=== PATIENT | female | born 1950 | race Caucasian/White ===

== ENCOUNTER → 2017-03-09 | Outpatient (CLI) | payer BC ==
[~2017-03-09] MED LIST: ASPI81TA28 PO; BIMA0.038 OPB; CHOL2000 PO; CLX20 PO; DORZ1SOL OPB; FLV400 PO; GLUC500C67 PO; MAGN1CAP2 PO; OMEG10007 PO; OXYC-57 PO; POLY1SOL6 OP; VTME100 PO
--- NOTE | 2017-03-09 08:57 | DIAGNOSTIC IMAGING REPORT ---
CT SCAN OF THE PARANASAL SINUSES CLINICAL HISTORY: Chronic sinusitis. COMPARISON STUDY: No priors. TECHNIQUE: High-resolution CT scan of the paranasal sinuses is performed. Images are reviewed in the axial, sagittal, and coronal planes. IV contrast was not administered for this examination. CT DOSE: 594.64 mGy.cm FINDINGS: Postoperative findings: There are postoperative changes from bilateral maxillary antrectomy with antrostomy formation. There has been ethmoid sinus resection. Maxillary antra: Trace mucosal thickening is seen bilaterally. Ethmoid cavities: There is mild mucosal thickening seen bilaterally. Sphenoid sinuses: Trace mucosal thickening is seen bilaterally. Frontal sinuses: Trace mucosal thickening seen bilaterally. Ostiomeatal complexes: The maxillary antrostomies are widely patent bilaterally. Frontoethmoidal and sphenoethmoidal recesses: Patent bilaterally. Carotid arteries: The carotid arteries are protuberant but covered and without septal attachments. Ethmoid roofs: The ethmoid roofs are symmetric. Nasal turbinates: Normal in appearance. Nasal septum: There is mild rightward deviation of the bony nasal septum. Optic nerves: Covered. Orbits: The bony orbits are intact. Orbital contents are normal in appearance. Calvarium: The skeletal structures are osteopenic. The calvarium appears intact as imaged. Mastoid air cells: Well pneumatized. Brain parenchyma: Partially visualized brain parenchyma is within normal limits. IMPRESSION: Postoperative change and mild paranasal sinus disease as detailed above. Electronically signed by: Silvio Petit M.D. 03/09/2017 8:55 AM Dictated Date/Time: 03/09/2017 8:52 AM
== END | disposition home or self-care (01) ==
LOC: C.CTS 08:18
PROVIDERS: ATTEND Otolaryngology
DX: J32.9 Chronic sinusitis, unspecified (principal)

== ENCOUNTER 2017-03-24 05:10 | Day surgery (SDC) | payer BC ==
--- NOTE | 2017-03-17 09:05 | PAT Medication Instructions ---
Service Date Mar 17, 2017. Current Home Medication List Aspirin (Aspirin Ec), 81 MG PO QAM Bimatoprost Oph (Lumigan 0.03% Oph), 1 DROP OPB HS Cholecalciferol (Vitamin D3), 1 CAP PO QAM Citalopram (Citalopram Hydrobromide), 20 MG PO BID Dorzolamide Hcl Oph (Trusopt Oph), 1 DROP OPB BID Fish Oil ([place]-3), 2 CAP PO QPM Folic Acid (Folvite *), 800 MCG PO QAM Glucosamine-Chondroitin (Cosamin Ds), 2 CAP PO NOON Magnesium Oxide (Mg Supplement (Magnesium), 800 MG PO QAM Polyethylene Glycol-Propylene (Systane Ultra), 1 DROPS OP QID PRN for EYE Tocopheryl Acet,Dl-Alpha (Vitamin E), 1 TAB PO QPM Medication Instructions For Your Scheduled Surgery - Check with surgeon for instructions (on hold per patient): Aspirin (Aspirin Ec), 81 MG PO QAM - Hold the following medications starting 03/17/17: Tocopheryl Acet,Dl-Alpha (Vitamin E), 1 TAB PO QPM Glucosamine-Chondroitin (Cosamin Ds), 2 CAP PO NOON Fish Oil ([place]-3), 2 CAP PO QPM - Hold the following medications the morning of surgery: Magnesium Oxide (Mg Supplement (Magnesium), 800 MG PO QAM Folic Acid (Folvite *), 800 MCG PO QAM Cholecalciferol (Vitamin D3), 1 CAP PO QAM - Take the following medications the morning of surgery with a sip of water: Polyethylene Glycol-Propylene (Systane Ultra), 1 DROPS OP QID PRN for EYE Dorzolamide Hcl Oph (Trusopt Oph), 1 DROP OPB BID Citalopram (Citalopram Hydrobromide), 20 MG PO BID - Take the following medications as scheduled the night before surgery: Bimatoprost Oph (Lumigan 0.03% Oph), 1 DROP OPB HS Polyethylene Glycol-Propylene (Systane Ultra), 1 DROPS OP QID PRN for EYE Dorzolamide Hcl Oph (Trusopt Oph), 1 DROP OPB BID Citalopram (Citalopram Hydrobromide), 20 MG PO BID If you have any questions please call us at [phone] (Malinda Robles PA-C) or [phone] or [phone]
[2017-03-17 09:58] LABS: BASO % 0.6 %; BASO ABS # 0.05 K/uL (0-0.2); COMPLETE YES; HEMATOCRIT 42.8 % (37-47); IG% 0.1 %; LYMPH % 21.7 %; LYMPH ABS # 1.68 K/uL (1.2-3.4); MEAN CELL VOLUME 90.7 fL (80-100); MEAN CORPUSCULAR HEMOGLOBIN 30.1 pg (25-34); MEAN CORPUSCULAR HGB CONC 33.2 g/dl (32-36); MEAN PLATELET VOLUME 9.8 fL (7.4-10.4); MONO % 9.9 %; NEUT % 64.7 %; PLATELET COUNT 247 K/uL (130-400); RED BLOOD COUNT 4.72 M/uL (4.2-5.4); WHITE BLOOD COUNT 7.74 K/uL (4.8-10.8)
[2017-03-17 10:13] LABS: CALCIUM 9.3 mg/dl (8.5-10.1)
[2017-03-17 10:16] LABS: BUN/CREATININE RATIO 19.9 (10-20); CREATININE 0.77 mg/dl (0.60-1.20); POTASSIUM 4.3 mmol/L (3.5-5.1)
--- NOTE | 2017-03-23 17:20 | History and Physical ---
History & Physical Date Mar 23, 2017. Chief Complaint sinus infection History of Present Illness The patient is a 66 year old female with complaints of chronic sinusitis Additional History Hepatic Disease: No Endocrine Disorder: No Kidney Disease: No Hypertension: No Heart Disease: No Bleeding Tendencies: No Infectious Diseases: No Allergies Coded Allergies: Ibuprofen (Verified Allergy, Severe, LARGE HIVES WHEN ON FOR EXTENDED TIME , 03/17/17) Naproxen (Unverified Allergy, Severe, DYSPNEA, 03/20/17) Latex1 -Allergic Contact Dermititis (Verified Allergy, Mild, ITCHY, ) Molds and Smuts (Verified Allergy, Unknown, ITCHING AND SINUS PROBLEMS, ) Sulfa Antibiotics (Verified Allergy, Unknown, RASH, 03/17/17) Sulfa Drugs (Verified Allergy, Unknown, RASH, 03/17/17) Benzodiazepines (Unverified Adverse Reaction, Mild, GETS ADDICTED, 03/20/17 ) Choline Magnesium Trisalicylate (Unverified Adverse Reaction, Mild, EAR RINGING, 03/20/17) Home Medications Scheduled Aspirin (Aspirin Ec), 81 MG PO QAM Bimatoprost Oph (Lumigan 0.03% Oph), 1 DROP OPB HS Cholecalciferol (Vitamin D3), 1 CAP PO QAM Citalopram (Citalopram Hydrobromide), 20 MG PO BID Dorzolamide Hcl Oph (Trusopt Oph), 1 DROP OPB BID Fish Oil ([place]-3), 2 CAP PO QPM Folic Acid (Folvite *), 800 MCG PO QAM Glucosamine-Chondroitin (Cosamin Ds), 2 CAP PO NOON Magnesium Oxide (Mg Supplement (Magnesium), 800 MG PO QAM Tocopheryl Acet,Dl-Alpha (Vitamin E), 1 TAB PO QPM Scheduled PRN Polyethylene Glycol-Propylene (Systane Ultra), 1 DROPS OP QID PRN for EYE Physical Examination Skin: warm/dry, no rash Eyes: normal inspection, EOMI, sclerae normal ENT: normal ENT inspection, pharynx normal Head: normocephalic, atraumatic Neck: supple, no adenopathy, trachea midline Respiratory/Chest: lungs clear, normal breath sounds, no respiratory distress Cardiovascular: regular rate, rhythm, no edema, no murmur Abdomen / GI: normal bowel sounds, non tender Back: normal inspection Extremities: normal inspection, normal range of motion Neurologic/Psych: no motor/sensory deficits, alert, normal reflexes, oriented x 3 Diagnosis chronic sinusitis Plan of Treatment endoscopic sinus surgery
[~2017-03-24] VITALS: Ht 154.9 cm; Wt 73.1 kg
[~2017-03-24 05:10] MED LIST changes: -OXYC-57 PO
[2017-03-24 05:46] VITALS: BP 108/76; PULSE 62; TEMP 37; O2SAT 96; Ht 154.9 cm; Wt 73.1 kg
[2017-03-24] MEDS ORDERED: LACTATED RINGER'S 1000ML 1,000 ML IV SCH (06:00)
[2017-03-24] MEDS ORDERED: CEFAZOLIN 1000MG/55 ML D5W IV SCH (06:00)
[2017-03-24] MEDS ORDERED: DEXAMETHASONE SOD INJ 4 MG/ML VIAL ONE (06:37)
[2017-03-24] MEDS ORDERED: FENTANYL CITRATE INJ 50 MCG/1 ML 2 ML VIAL ONE (06:37)
[2017-03-24] MEDS ORDERED: NEOSTIGMINE METHYLSULFATE 5 MG/5 ML SYR ONE (06:37)
[2017-03-24] MEDS ORDERED: PROPOFOL IV EMULSION 10 MG/ML 20 ML VIAL IV ONE (06:37)
[2017-03-24] MEDS ORDERED: MIDAZOLAM HCL 1 MG/ML 2ML VIAL ONE (06:37)
[2017-03-24] MEDS ORDERED: ROCURONIUM BROMIDE 10 MG/ML 5 ML VIAL ONE (06:37)
[2017-03-24] MEDS ORDERED: GLYCOPYRROLATE INJ 0.2 MG/ML VIAL ONE (06:37)
[2017-03-24] MEDS ORDERED: LIDOCAINE HCL 2% 2 ML VIAL (20MG/ML) ONE (06:37)
[2017-03-24] MEDS ORDERED: ONDANSETRON INJ 2 MG/ML 2 ML VIAL ONE (06:37)
[2017-03-24] MEDS ORDERED: GELATIN SPONGE 12-7MM ONE (06:58)
[2017-03-24] MEDS ORDERED: MUPIROCIN 2% OINT 22 GM TUBE ONE (06:59)
[2017-03-24] MEDS ORDERED: EpINEphrine INJ 1MG/ML AMP 1 MG/ML AMP ONE (06:59)
[2017-03-24] MEDS ORDERED: LIDOCAINE 4% W/AFRIN NASAL SOLN 4ML ONE (06:59)
[2017-03-24] MEDS ORDERED: NURSING VERBAL MED ORDER ONE (07:00)
[2017-03-24] MEDS ORDERED: LIDO 2%/EPINEPHRINE 1:100000 20 ML VIAL INFIL SCH (07:00)
--- NOTE | 2017-03-24 07:01 | History & Physical Bridge Note ---
H&P Re-Evaluation Bridge Note: I have examined the patient, reviewed the History & Physical and in the interval since the performance of the History & Physical I have noted the following changes of clinical significance: No changes noted
[2017-03-24] MEDS ORDERED: EpHEDrine SULFATE 50MG/5ML SYR ONE (07:32)
[2017-03-24] MEDS ORDERED: HEMADERM ENT APPLICATOR KIT TOP ONE (07:33)
[2017-03-24] MEDS ORDERED: PROMETHAZINE HCL INJ 12.5 MG in SODIUM CHLORIDE 0.9% 50ML 50 ML IV PRN (07:45)
[2017-03-24] MEDS ORDERED: FENTANYL CITRATE INJ 50 MCG/1 ML 2 ML VIAL IV PRN (07:45)
[2017-03-24] MEDS ORDERED: ONDANSETRON INJ 2 MG/ML 2 ML VIAL IV PRN (07:45)
[2017-03-24] MEDS ORDERED: ATROPINE SULFATE 0.1 MG/ML 5ML SYR IV PRN (07:45)
[2017-03-24] MEDS ORDERED: LARYING-O-JET KIT (LTA) EXT ONE ×2 (07:47)
[2017-03-24] MEDS ORDERED: SODIUM CHLORIDE 0.9% 1000ML 1,000 ML IV SCH (08:47)
[2017-03-24] MEDS ORDERED: OXYC-57 PO (08:48)
--- NOTE | 2017-03-24 08:49 | Discharge Instructions ---
Discharge Instructions Date of Service Mar 24, 2017. Admission Reason for Admission: Chronic Sinusitis Discharge Discharge Diagnosis / Problem: same Discharge Goals Goal(s): Improve disease control Activity Recommendations Activity Limitations: per Instructions/Follow-up section . Instructions / Follow-Up Instructions / Follow-Up ACTIVITY RECOMMENDATIONS: * Being up and around is good, but no strenuous activity, heavy lifting or physical exertion for one week. * Keep your head elevated 30 degrees when lying down or sleeping. * Do not blow your nose for 48 hours, sniff back instead. * Avoid hot showers. OVER THE COUNTER MEDICATIONS: * You may use Tylenol * Avoid aspirin or aspirin containing products, e.g. as they may increase bleeding. SPECIAL CARE INSTRUCTIONS: * Expect to have bloody drainage from your nose and/or down your throat for one to three days. Change drip pad as needed. * Begin irrigating your nose with saline solution today, at least six to ten times per day and sniff back to help remove old clots or crust. * You may experience nasal and facial congestion, pain and pressure, this is normal. * Please call with any significant and/or progressive pain, redness, swelling around the eyes, visual changes, fever of 101.5 degrees F, active bleeding or any problems or concerns. * If active bleeding occurs, spray the nose three times at one minute intervals with Afrin spray and call or cell phone: . If unable to reach the doctor, go to the nearest Emergency Department. Special Diet: * Avoid extremely hot fluids. FOLLOW UP VISIT: Follow-up Visit with Dr. Felipe If not already scheduled, please call to schedule. Current Hospital Diet Patient's current hospital diet: Discharge Diet Recommended Diet: Regular Diet Procedures Procedures Performed: Endoscopic Sinus Surgery of Right and Left Total Ethmoidectomies, Right and Left Frontal and Right and Left Maxillary Sinusotomies with Computer Guidance Pending Studies Studies pending at discharge: no Medical Emergencies . Who to Call and When: Medical Emergencies: If at any time you feel your situation is an emergency, please call 911 immediately. . Non-Emergent Contact Non-Emergency issues call your: Primary Care Provider . "Provider Documentation" section prepared by Dolly Felipe. . VTE Core Measure Inpt VTE Proph given/why not?: SCD's [place] Drug Monitoring Program Search Results: no issues identified
[2017-03-24] MEDS ORDERED: OXYCODONE/ACETAMINOPHEN 5-325 TAB PO PRN ×2 (09:00)
--- NOTE | 2017-03-24 09:07 | OPERATIVE REPORT ---
DATE OF OPERATION: 03/24/2017 PREOPERATIVE DIAGNOSIS: Chronic sinusitis. POSTOPERATIVE DIAGNOSIS: Same. PROCEDURE: Endoscopic sinus surgery with right and left frontal sinusotomy, right and left total ethmoidectomy and right and left maxillary sinus antrostomies. SURGEON: Dr. Felipe. ANESTHESIA: General endotracheal. COMPLICATIONS: None. BLOOD LOSS: 45 mL. HISTORY OF PRESENT ILLNESS: This 66-year-old lady presented with recurrent chronic sinusitis for the last several years. She previously had sinus surgery by me 12 years ago but has adhesions on the left side and blocked nasofrontal duct and upper ethmoid sinuses. PROCEDURE: The patient brought to the operating room, placed supine position. General endotracheal anesthesia was induced, prepped, draped in usual sterile manner. [employer] device calibrated and used for the entire procedure. Topical cottonoids with a solution of 4 mL of 4% Xylocaine mixed with 1 mL of Epinephrine was used. Injection of 2% Xylocaine 1:100,000 strength epinephrine was also used. There were adhesions blocking the middle meatus on the left side more so than the right. These were lysed using #15 blade opening up the middle meatus and opening up the maxillary ostia. At this point, the left nasofrontal duct was cannulated with the guidewire with [employer] computer guidance and then dilated using the 6 mm balloon. The guidewire was left in place as a marker. Frontal sinusotomy was performed by removing the residual upper ethmoid air cells and the residual agger nasi cell using the shaver coupled with the Fivejack device. The anterior wall and the posterior wall of the agger nasi cell were removed opening up the nasal frontal duct. The residual superior ethmoid air cells were removed opening up the anterior and posterior ethmoids. The maxillary ostia was opened by removing adhesions at the maxillary ostia in the middle meatus to the middle turbinate. The right frontal sinusotomy, total ethmoidectomy, and maxillary sinus antrostomy was performed in a similar manner. Propel stents were placed and HemaDerm powder was used to control hemostasis. The patient tolerated the procedure well and was taken to recovery area in satisfactory condition. I attest to the content of the Intraoperative Record and any orders documented therein. Any exceptions are noted below. EDWARD
--- NOTE | 2017-03-24 09:49 | Anesthesiology Progress Note ---
Anesthesia Post Op Note Date & Time Mar 24, 2017 at 09:48 Vital Signs Pain Intensity: 0 Vital Signs Past 12 Hours Date Time Temp Pulse Resp B/P Pulse Ox O2 Delivery O2 Flow Rate FiO2 03/24/17 09:15 135/81 03/24/17 09:12 74 14 03/24/17 09:12 73 14 92 03/24/17 09:10 122/77 03/24/17 09:07 70 18 100 03/24/17 09:07 69 18 03/24/17 09:04 132/78 03/24/17 09:02 68 16 03/24/17 09:02 68 16 100 03/24/17 09:01 132/78 03/24/17 08:57 69 16 100 03/24/17 08:57 69 16 03/24/17 08:56 118/71 03/24/17 08:52 73 16 03/24/17 08:52 72 16 100 03/24/17 08:51 131/80 03/24/17 08:48 130/79 03/24/17 08:47 36.1 78 14 130/79 100 Mask 10 03/24/17 08:47 80 24 03/24/17 08:47 80 24 100 03/24/17 05:46 37 62 16 108/76 96 Room Air Notes Mental Status: alert / awake / arousable, participated in evaluation Pt Amnestic to Procedure: Yes Nausea / Vomiting: adequately controlled Pain: adequately controlled Airway Patency, RR, SpO2: stable & adequate BP & HR: stable & adequate Hydration State: stable & adequate Anesthetic Complications: no major complications apparent
[2017-03-24 09:55] VITALS: BP 137/80; PULSE 71; TEMP 36.7; O2SAT 92
[2017-03-24 10:26] VITALS: BP 122/85; PULSE 66; TEMP 36.7; O2SAT 95
[2017-03-24 10:55] VITALS: BP 121/68; PULSE 71; TEMP 36.7; O2SAT 95
== END 2017-03-24 11:30 | disposition home or self-care (01) ==
LOC: C.ACU 05:10
PROVIDERS: ATTEND Otolaryngology
DX: J32.9 Chronic sinusitis, unspecified (principal); E11.9 Type 2 diabetes mellitus without complications; H40.9 Unspecified glaucoma; Z88.2 Allergy status to sulfonamides; Z91.040 Latex allergy status; Z79.82 Long term (current) use of aspirin; Z68.30 Body mass index [BMI] 30.0-30.9, adult; Z90.49 Acquired absence of other specified parts of digestive tract; Z98.890 Other specified postprocedural states; E66.9 Obesity, unspecified; Z85.3 Personal history of malignant neoplasm of breast

== ENCOUNTER → 2017-05-04 | Outpatient (CLI) | payer BC ==
[~2017-05-04] MED LIST changes: +OXYC-57 PO
== END | disposition home or self-care (01) ==
LOC: C.PAPS 10:14
PROVIDERS: ATTEND Physician Assistant
DX: Z01.419 Encounter for gynecological examination (general) (routine) without abnormal findings (principal); N95.8 Other specified menopausal and perimenopausal disorders

== ENCOUNTER 2021-05-11 05:19 | Observation (INO) ==
--- NOTE | 2021-05-05 14:01 | PAT Medication Instructions ---
Medication Instructions Date of Service May 05, 2021 Home Medications Lumigan 1 drp OPB HS Ocuvite Adult 50 Plus 1 cap PO QPM [place] Mint 2 cap PO QPM aspirin [Aspir-Low] 81 mg PO QAM cholecalciferol (vitamin D3) [Vitamin D3] 4,000 unit PO QAM citalopram 20 mg PO BID dorzolamide-timolol 1 drp OPB BID folic acid 0.8 mg PO QAM glucosamine-chondroitin [Cosamin DS] 2 tab PO QPM ibuprofen [Advil Liqui-Gel] 200 mg PO QAM magnesium 1 tab PO QAM hydroxyzine pamoate [Vistaril] 25 - 50 mg PO DAILY PRN ASK your surgeon for instructions ibuprofen [Advil Liqui-Gel] 200 mg PO QAM STOP taking 2 weeks before surgery [place] Mint 2 cap PO QPM glucosamine-chondroitin [Cosamin DS] 2 tab PO QPM DO NOT take the morning of surgery cholecalciferol (vitamin D3) [Vitamin D3] 4,000 unit PO QAM folic acid 0.8 mg PO QAM magnesium 1 tab PO QAM hydroxyzine pamoate [Vistaril] 25 - 50 mg PO DAILY PRN Take morning of surgery With a small sip of water, OTHERWISE NOTHING TO EAT OR DRINK AFTER MIDNIGHT: aspirin [Aspir-Low] 81 mg PO QAM citalopram 20 mg PO BID dorzolamide-timolol 1 drp OPB BID Take evening before surgery Lumigan 1 drp OPB HS Ocuvite Adult 50 Plus 1 cap PO QPM citalopram 20 mg PO BID dorzolamide-timolol 1 drp OPB BID hydroxyzine pamoate [Vistaril] 25 - 50 mg PO DAILY PRN (if needed) Other Notes If you have any questions please call us at [phone] or [phone] or [phone] or [phone]
--- NOTE | 2021-05-05 15:52 | Anesthesiology Consultation ---
Date of Service May 05, 2021 Assessment & Plan (1) Encounter for pre-operative examination: Chart Review Chart Review: Acceptable Risk for Surgery (surgeon ordered PCP clearance and preop Covid testing results ) and Patient seen in Pre Admission Testing Awaiting surgeon ordered PCP clearance (seen 05/03/21- note not yet signed) Pt is scheduled as [facility] Day Joint Program. Pt is motivated and has support at home. Discussed case with Dr. Farmer- pt acceptable risk as Same Day Joint. Does get cold urticaria - usually in arms- if arm on cold surface Cannot get rings off fingers- will try to get off before surgery- otherwise patient would like to accept risk and keep rings in place during TKA. Did discuss with patient that final decision would be left to surgeon's discretion- pt voices understanding Per PAT appt on 05/05/21, pt resides in [facility]. Local travel only. No known Covid positive contacts or Covid related symptoms. No known Covid infection in the past 90 days. Preop Covid testing scheduled 05/07/21= will await results. Educated on importance of self quarantining, social distancing and wearing mask in public both for the patient after Covid testing done. Pt vaccinated . History Surgery Operation Date: 05/11/21 13:40 Proposed Procedures p Left Total Knee Arthroplasty - [place] Stacy Waters MD Height/Weight Height: 5 ft 1 in Weight: 74.1 kg Allergies Allergy/AdvReac Type Severity Reaction Status Date / Time ibuprofen Allergy Severe LARGE Verified 05/05/21 15:45 HIVES WHEN ON HIGH DOSES naproxen Allergy Severe ARM Verified 05/04/21 09:06 NUMBNESS caffeine Allergy Mild "increases Verified 05/04/21 09:06 anxiety" latex Allergy Mild ITCHY Verified 05/04/21 09:06 mold Allergy Mild ITCHING Verified 05/05/21 15:45 AND SINUS PROBLEMS Sulfa (Sulfonamide Allergy Mild RASH Verified 05/04/21 09:06 Antibiotics) fentanyl AdvReac Intermediate Nausea Verified 05/04/21 09:06 Benzodiazepines AdvReac Mild GETS Verified 05/04/21 09:06 ADDICTED choline salicylate AdvReac Mild EAR RINGING Verified 05/04/21 09:06 magnesium salicylate AdvReac Mild EAR RINGING Verified 05/04/21 09:06 Trilisate AdvReac Mild EAR RINGING Unverified 03/24/17 05:42 CHOLINE MAG TRISAL Allergy Intermediate EAR RINGING Uncoded 05/04/21 09:06 Medications Home Medications Medication Instructions Recorded Confirmed Last Taken Lumigan 1 drp OPB HS 03/01/19 05/04/21 03/11/19 Ocuvite Adult 50 Plus 1 cap PO QPM 03/01/19 05/04/21 03/25/19 06:30 [place] Mint 2 cap PO QPM 03/01/19 05/04/21 03/25/19 06:30 aspirin [Aspir-Low] 81 mg PO QAM 03/01/19 05/04/21 03/25/19 06:30 cholecalciferol (vitamin D3) 4,000 unit PO QAM 03/01/19 05/04/21 03/25/19 06:30 [Vitamin D3] citalopram 20 mg PO BID 03/01/19 05/04/21 03/26/19 06:30 dorzolamide-timolol 1 drp OPB BID 03/01/19 05/04/21 03/26/19 06:30 folic acid 0.8 mg PO QAM 03/01/19 05/04/21 03/25/19 06:30 glucosamine-chondroitin [Cosamin 2 tab PO QPM 03/01/19 05/04/21 03/25/19 06:30 DS] ibuprofen [Advil Liqui-Gel] 200 mg PO QAM 03/01/19 05/04/21 03/11/19 22:30 magnesium 1 tab PO QAM 03/01/19 05/04/21 03/25/19 06:30 hydroxyzine pamoate [Vistaril] 25 - 50 mg PO DAILY PRN 05/04/21 05/04/21 Unknown Zinc See Rx Instructions .ROUTE .COMPLEX 05/05/21 Unknown Past Medical History Medical History Anxiety Chronic sinusitis 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 DCIS Stage 3 No chemo, XRT or Tamoxifen Glaucoma History of panic attacks Insomnia Osteoarthritis Prediabetes Restless leg syndrome Improved with caffeine Sciatica Lower right side Exercise / Class Metabolic Activity III < 4 Walking/Shop/Light housework (one flight of stairs - mild SOB, no chest pain ) Past Family History Family History Mother Family hx of colon cancer Family history of diabetes mellitus Colorectal cancer Grandmother (Maternal) Family hx of colon cancer Father Alcohol abuse Parkinson disease Uncle Colorectal cancer maternal Other No family history of adverse response to anesthesia Denies family history of Ovarian cancer Breast cancer Past Surgical History Surgical History Cyst RT FOOT CYST REMOVED (2 SURGERIES) History of ankle surgery right x 3 History of cataract surgery LEFT on 03/12/19: was given 20mg propofol and 100mcg fentanyl History of cholecystectomy History of colonoscopy History of dilatation and curettage History of esophagogastroduodenoscopy (EGD) History of laparoscopy History of nasal septoplasty 2 SURGERIES History of tooth extraction Hx of lumpectomy RT Nausea and vomiting after administration of anesthetic agent WITH LEFT CATARACT PROCEDURE. Past Anesthesia History No Hx of Anesthesia Complications (with exception to one episode of PONV ) and No Family Hx of Anesthesia Complications History of PONV History of PONV (only with left cataract extraction (had complications with left eye pain)) and Hx of Motion Sickness Social History Smoking Status: Never smoker Do You Dip or Chew Tobacco: No Hx Alcohol Use: Yes Alcohol type: wine alcohol intake frequency: a few times a month Alcohol Intake Frequency Comment: half a glass of wine a week Hx Substance Use: No substance use type: does not use Review of Systems Chronic sinusitis - occ post nasal drip with cough Occ snoring - had hx of sleep study- found RLS - no known YOLY Patient denies chest pain, shortness of breath at rest,, reflux, cough, wheezing, palpitations. No hx of seizures, stroke, WI, apnea/snoring. No hx of blood clots or blood transfusions Physical Exam Vital Signs VITALS BP 118/20 P 69 TEMP 97.7 SP02 96% RESP 16 Constitutional no acute distress ENMT Mouth: no TMJ clicking Thyromental Distance: > or= 3.5 Finger Breadths (3.5) Mallampati Class: III Denies loose or missing teeth Neck neck extension not limited Respiratory normal respiratory effort; no respiratory distress Auscultation: lungs clear to auscultation bilaterally; no wheezes Cardiovascular Rate/Rhythm: regular rate and regular rhythm Heart Sounds: no murmur Vessels: no carotid bruit Musculoskeletal Spine: no pain with cervical ROM Extremities: extremities normal to inspection Psychiatric Orientation: alert Lab Results Anesthesia Preop Results Results Anesthesia Widget: WBC 8.17 K/uL (4.8-10.8) 05/05/21 Hgb 13.6 g/dL (12.0-16.0) 05/05/21 Hct 39.4 % (37-47) 05/05/21 Plt 236 K/uL (130-400) 05/05/21 PT 10.1 Seconds (9.0-12.0) 05/05/21 PTT 24.6 Seconds (21.0-31.0) 05/05/21 INR 1.0 (0.9-1.1) 05/05/21 Blood Type A Positive 05/05/21 Antibody Screen NEGATIVE 05/05/21 Testing Laboratory Results 03/19/21= SODIUM: 141 POTASSIUM: 4.4 CHLORIDE: 105 CO2: 25 BUN: 16 CREATININE: 0.8 GLUCOSE: 134 HGB A1C: 6.3 Electrocardiogram Date: 05/03/21 Findings: + NSR @ (66bpm) Normal EKG per cardio.
[2021-05-11] MEDS ORDERED: LR 500ML BOLUS, THEN 15ML/HR IV SCH (06:00)
[2021-05-11] MEDS ORDERED: TRANEXAMIC ACID 1,000 MG **IV Intra-op IV SCH (06:00)
[2021-05-11] MEDS ORDERED: ACETAMINOPHEN 500 MG TAB PO SCH (06:00)
[2021-05-11] MEDS ORDERED: GABAPENTIN 300 MG CAP PO SCH (06:00)
[2021-05-11] MEDS ORDERED: ceFAZolin 2000MG 2,000 MG/15 ML SYR IV SCH (06:00)
[2021-05-11] MEDS ORDERED: ROPIVACAINE 0.5% HCL/PF 150 MG, BUPIVACAINE 0.75% MPF 20 ML, EPINEPHrine 0.15 MG, Ketor... INFIL SCH (06:00)
[2021-05-11] MEDS ORDERED: Scopolamine 1 MG TDSY TD SCH (06:00)
[2021-05-11] MEDS ORDERED: SODIUM CHLORIDE 0.9% 1000ML 1,000 ML IV SCH ×2 (06:00→17:41)
[2021-05-11] MEDS ORDERED: LR 60ML/HR IV SCH (06:00)
[2021-05-11] MEDS ORDERED: TRANEXAMIC ACID 1,000 MG **IV Pre-op IV SCH (06:00)
[2021-05-11] MEDS ORDERED: LIDOCAINE 2%/EPINEPHRINE 1:200,000 20 ML SDV ONE (06:16)
[2021-05-11] MEDS ORDERED: BUPIVACAINE 0.25% 30 ML VIAL ONE ×2 (06:17→06:19)
[2021-05-11] MEDS ORDERED: EPINEPHrine INJ 1 MG/ML AMP ONE (06:17)
[2021-05-11] MEDS ORDERED: PROPOFOL IV EMULSION 10 MG/ML 20 ML VIAL IV ONE ×2 (06:34→09:38)
[2021-05-11] MEDS ORDERED: LIDOCAINE 2% 2 ML VIAL/AMP(20MG/ML) INFIL ONE (06:35)
[2021-05-11] MEDS ORDERED: ONDANSETRON INJ 2 MG/ML 2 ML VIAL ONE (06:35)
[2021-05-11] MEDS ORDERED: ORTHO JOINT ANESTHETIC ONE (06:43)
--- NOTE | 2021-05-11 06:44 | History & Physical Bridge Note ---
Date of Service May 11, 2021 History & Physical Bridge Note I have examined the patient, reviewed the History & Physical and in the interval since the performance of the History & Physical I have noted the following changes of clinical significance: She had gone to an urgent care and was given Keflex for a presumed UTI, which turned out to be negative Culture. Patient is aware of the risks, is asymptomatic, and tested negative for COVID- 19.
[2021-05-11] MEDS ORDERED: MIDAZOLAM HCL 1 MG/ML 2ML VIAL ONE (06:50)
[2021-05-11] MEDS ORDERED: fentaNYL citrate 100 MCG/2 ML VIAL ONE (06:50)
[2021-05-11] MEDS ORDERED: MEPIVACAINE HCL 2% 20 ML VIAL ONE (06:56)
[2021-05-11] MEDS ORDERED: ePHEDrine sulfate 50 MG/ML AMP IV PRN (08:25)
[2021-05-11] MEDS ORDERED: ONDANSETRON INJ 2 MG/ML 2 ML VIAL IV PRN ×2 (08:25→17:41)
[2021-05-11] MEDS ORDERED: fentaNYL citrate 100 MCG/2 ML VIAL IV PRN (08:25)
[2021-05-11] MEDS ORDERED: ATROPINE SULFATE 0.1 MG/ML 10ML SYR IV PRN (08:25)
[2021-05-11] MEDS ORDERED: HYDROmorphone INJ 2 MG/ML SYR/VIAL IV PRN (08:25)
[2021-05-11] MEDS ORDERED: GLYCOPYRROLATE 0.2 MG/ML VIAL ONE (09:18)
[2021-05-11] MEDS ORDERED: PHENYLEPHRINE HCL 10 MG/ML VIAL ONE (09:18)
--- NOTE | 2021-05-11 09:59 | Post Operative Brief Note ---
Immediate Post Op Note v1 Date of Surgery May 11, 2021 Pre & Post Diagnosis Operation Date: 05/11/21 07:00 Pre-Op Diagnosis: Left Knee Osteoarthritis Post-Op Diagnosis: Left Knee Osteoarthritis I identified the patient and participated in the time-out.: Yes Procedure Operation Date: 05/11/21 07:00 Actual Procedures p Left Total Knee Arthroplasty(Left) - [place] Waters MD Surgeon Ch[place] Waters MD Family Support Specialist Antonio Palmer PA-C (No fellow Avail) Estimated Blood Loss 175 Findings Consistent with Post-Op Diagnosis Fluids 1200 cc Specimens Left knee contents Anesthesia Type MAC Spinal Regional Complications none
--- NOTE | 2021-05-11 10:00 | Operative Report ---
Post Operative Report Pre & Post Diagnosis Operation Date: 05/11/21 07:00 Pre-Op Diagnosis: Left Knee Osteoarthritis Post-Op Diagnosis: Left Knee Osteoarthritis I identified the patient and participated in the time-out.: Yes Procedure Operation Date: 05/11/21 07:00 Actual Procedures p Left Total Knee Arthroplasty(Left) - Chico Waters MD Surgeon Chico Waters MD Product Introduction Manager Antonio Palmer PA-C (No fellow Avail) Estimated Blood Loss 175 Findings See Below Examined Under Anesthesia: ROM -- 8 to 135 degrees of flexion Ligamentous examination -- revealed stable Blayne, posterior drawer, varus and valgus stress at 8 and 30 degrees. [place] Type IV changes of Medial compartment and Patellofemoral compartment. Type II changes Lateral compartment. Fluids 1200 cc Specimens Left knee contents Drains n/a Anesthesia Type MAC Spinal Regional Complications none Indications This is a 71-year-old female who has clinical and radiographic findings consiste nt with osteoarthritis of the a left knee. I recommended that a left total knee replacement be performed. The patient understands the risks of surgery, which include but not limited to: bleeding, infection, re-operation, damage to nerves and arteries, continued knee pain, knee stiffness, DVT, and . The patient understands all of these instructions and explanations, all of his questions hav e been satisfactorily addressed and the patient has elected to proceed. Informed consent was signed. Description of Procedure IMPLANTS: 1. Femur: Triathlon #3 Left PS, with femoral distal fixation pegs. 2. Tibia: Triathlon #4 [place]. 3. Insert: Triathlon #4 x 9 mm PS X3 poly. 4. Patella: Triathlon S29 x 8 mm X3 poly. 5. Simplex cement. Antonio Palmer PA-C is assisting with positioning, retracting, and closure due to fellow not available. PROCEDURE: The patient was taken to the Operating Room and placed in the supine position after spinal and adductor canal nerve block was administered. My initials and a multidisciplinary time-out were used to identify the left leg as the correct operative limb. A tourniquet was placed high in the thigh. Prior to the incision, 2 grams of intravenous Ancef were given. The left leg was then prepped and draped in a standard sterile fashion. An Esmarch was used to exsanguinate the leg and the tourniquet was inflated to 250 mmHg. The planned mid-line 20 cm incision was created exposing the extensor mechanism. The medial parapatellar arthrotomy was made and the patella was everted. The patella was addressed first. It was prepared by reaming from 21 mm down to 12 mm. An S29 button was found to fit best. The peg holes were made in the standard fashion. The femur was addressed next and the guide christy was placed intramedullary. The initial cutting block was placed with 5 degrees of valgus and removing 10 mm for the distal cut. The cut was made and the 4-in-1 cutting block for a size 3 femur was placed. These cuts and the cuts to place the box were made in the standard fashion. Our attention was then drawn to the tibia cut with the external cutting guide, taking 2 mm from the medial low side. There was sufficient extension and flexion gap to fit a 9 mm spacer. A #4 Tibial baseplate fit well. A trial with a 9 mm spacer showed excellent stability in both flexion and extension, with good ligament balance, and thumbs free patellar tracking. Range of motion of 0- 130 degrees. The tibial baseplate was prepped for the keel and stem. All components were removed. The tourniquet was deflated. Hemostasis was obtained. 90 ml of total knee cocktail were injected into the soft tissues and periosteum. A bone plug was placed in the femur and covered with bone wax. After a 15 minute break, the limb was exsanguinated again and the tourniquet was re-inflated. All surfaces were copiously irrigated prior to placement of the components. The femoral component followed by Tibial baseplate were cemented in place and and the 9 mm X3 poly was placed. Next, the patellar button was placed using the same Simplex cement. Again the range of motion and stability were unchanged. The extensor mechanism was closed with 1-0 and 0 Vicryl with the knee bent approximately 60 degrees in a standard fashion. The peritenon and deep fascia was closed with 2-0 Vicryl. The subcutaneous layer was closed with 3-0 Vicryl. The skin was closed with Zipline and shield. The limb was cleaned and dried. 4x4 dressing was placed over top followed by ABDs, sterile Webril, and a foot to thigh Jose bandage. The patient was then transferred to the Recovery Room in stable condition. The sponge and needle counts were correct. POST-OP INSTRUCTIONS: The patient will be WBAT. The patient was to be done as an outpatient, but she was unable to pass PT due to low blood pressure and was admitted to the hospital. Labs will be obtained during the stay. DVT prophylaxis will included aspirin for 6 weeks, TEDs, and mechanical foot pumps. The dressing will be changed postop day #2 and covered with a Silverlon dressing. I attest to the content of the Intraoperative Record and any orders documented therein. Any exceptions are noted below.
[2021-05-11] MEDS ORDERED: oxyCODONE/ACETAMINOPHEN 5mg/325mg TAB PO PRN (10:04)
[2021-05-11] MEDS ORDERED: MoRPHine SULFATE 4 MG/ML 1 ML CARP\\VIAL IV PRN (10:04)
[2021-05-11] MEDS ORDERED: MoRPHine SULFATE 2 MG/ML CARP IV PRN (10:04)
[2021-05-11] MEDS ORDERED: METOCLOPRAMIDE HCL INJ 5 MG/ML 2 ML VIAL IV PRN ×2 (10:04→17:41)
--- NOTE | 2021-05-11 10:20 | Operative Report ---
Post Operative Report Pre & Post Diagnosis Operation Date: 05/11/21 07:00 Pre-Op Diagnosis: Left Knee Osteoarthritis Post-Op Diagnosis: Left Knee Osteoarthritis I identified the patient and participated in the time-out.: Yes Procedure Operation Date: 05/11/21 07:00 Actual Procedures p Left Total Knee Arthroplasty(Left) - Chico Waters MD Surgeon Chico Waters MD Doctorate Of Chiropractic Antonio Palmer PA-C (No fellow Avail) Estimated Blood Loss 175 Findings Consistent with Post-Op Diagnosis Specimens bone Complications none Description of Procedure See Dr Waters note. I was dental front office assistant during entire case to include prepping, draping, limb and instrument handling, wound closure, dressings. I attest to the content of the Intraoperative Record and any orders documented therein. Any exceptions are noted below.
--- NOTE | 2021-05-11 10:32 | XRay Report ---
LEFT KNEE 2 VIEWS History: Left total knee arthroplasty. Degenerative arthritis. Postop. FINDINGS: The patient is status post a left total knee arthroplasty. The hardware is intact. No fract ure or dislocation.. IMPRESSION: Left total knee arthroplasty. No evidence for hardware complication. ACT 112: Negative or not required by law. Electronically signed by: Cristino Felder M.D. 05/11/2021 10:31 AM
--- NOTE | 2021-05-11 10:33 | Anesthesiology Progress Note ---
Date of Service May 11, 2021 Anesthesia Post Procedure Vital Signs Vital Signs: Temp Pulse Pulse Resp BP Pulse Ox 05/11/21 10:25 69 17 97/66 L 94 05/11/21 10:15 72 18 100/69 91 05/11/21 10:05 37.1 C 72 21 111/76 93 05/11/21 06:48 36.8 C 60 20 141/86 H 97 05/11/21 06:18 36.8 C 62 20 124/85 97 Transfer of Care Handoff Completed per policy Notes Mental Status: alert / awake / arousable and participated in evaluation Patient Amnestic to Procedure: Yes Nausea / Vomiting: adequately controlled Pain: adequately controlled Airway Patency, RR, SpO2: stable & adequate BP & HR: stable & adequate Hydration State: stable & adequate Anesthetic Complications: no major complications apparent and Pt Satisfied with anesthetic care
[2021-05-11] MEDS ORDERED: ceFAZolin 2000MG 2,000 MG/15 ML SYR IV ONE (12:04)
[2021-05-11 14:46] LABS: Hematocrit (blood only) 35.5 % (37-47)
[2021-05-11] MEDS ORDERED: Scopolamine CHECK PATCH PLACEMENT SCH (16:00)
[2021-05-11] MEDS ORDERED: HYDROmorphone INJ 0.5 MG/0.5 ML SYR IV PRN (17:41)
[2021-05-11] MEDS ORDERED: MAGNESIUM HYDROXIDE SUSP 30 ML UDC PO PRN (17:41)
[2021-05-11] MEDS ORDERED: ALUMINUM/MAGNESIUM SUSP 30 ML UDC PO PRN (17:41)
[2021-05-11] MEDS ORDERED: diphenhydrAMINE 50 MG/ML VIAL IV PRN (17:41)
[2021-05-11] MEDS ORDERED: oxyCODONE HCL IR 5 MG TAB (IMMEDIATE RELEASE) PO PRN (17:41)
[2021-05-11] MEDS ORDERED: hydrOXYzine HCl 25 MG TAB PO PRN (17:41)
[2021-05-11] MEDS ORDERED: bisacodyL 10 MG SUPP PR PRN (17:41)
[2021-05-11] MEDS ORDERED: NALOXONE HCL 0.4 MG/1 ML VIAL/CARP IV PRN (17:41)
--- NOTE | 2021-05-11 18:04 | XRay Report ---
XR knee LT 1 or 2V routine CLINICAL HISTORY: Surgical Post Op COMPARISON: Left knee radiographs performed earlier today. FINDINGS: Alignment of the total left knee arthroplasty is anatomic. There is no periprosthetic frac ture. There is no unexpected radiopaque foreign body. IMPRESSION: Expected findings following total left knee arthroplasty. ACT 112: Negative or not required by law. Electronically signed by: Jon Phoenix M.D. 05/11/2021 6:03 PM
--- NOTE | 2021-05-11 20:37 | Orthopedic Progress Note ---
Date of Service May 11, 2021 Assessment & Plan (1) Osteoarthritis of left knee: POD #0 s/p left TKA, planned to be done as an outpatient, her blood pressure remained low with attempted standing and workig with PT despite IV fluid boluses. She was admitted. Regular diet. WBAT LLE with walker. OOB to chair. Continue pain control. Check labs tomorrow. DVT prophylaxis: TEDs 3 weeks, foot pumps while in hospital, ASA 81 mg BID for 6 weeks. PT/OT. Plan to change dressing POD #2 to Silverlon D/C planning. Present on Admission?: Yes Admission and Anticipated Discharge Date Admission Date: May 11, 2021 Subjective Patient notes her BP normally runs low Review of Systems Review of Systems: All systems reviewed & are unremarkable except as noted in HPI & below denies chest pain, shortness of breath. Dizziness with PT. Physical Exam Physical Exam: LLE: Dressing clean, dry, intact. Able to actively flex and extend the knee. Wiggling ankles and toes. decreased sensation to light touch. BCR < 2 sec. Results & Data ([facility]) Vital Signs (Past 12 Hours) Vital Signs Temp Pulse Pulse Resp BP Pulse Ox 05/11/21 19:05 36.8 C 79 20 101/69 93 05/11/21 15:00 36.7 C 73 16 93/55 L 94 05/11/21 13:00 77 16 88/63 L 94 05/11/21 12:00 77 16 93/59 L 95 05/11/21 11:30 36.5 C 75 16 97/59 L 95 05/11/21 11:05 67 16 92/68 L 96 05/11/21 10:50 36.5 C 64 16 97/65 L 95 05/11/21 10:45 36.4 C L 72 20 102/67 94 05/11/21 10:35 71 18 95/65 L 92 05/11/21 10:25 69 17 97/66 L 94 05/11/21 10:15 72 18 100/69 91 05/11/21 10:05 37.1 C 72 21 111/76 93 Laboratory Results 05/11/21 05/11/21 05/11/21 Range/Units 16:12 16:12 14:33 Hgb 12.0 (12.0-16.0) g/dL Hct 35.5 L (37-47) % COVID-19 Eval [facility] SARS-[facility]-2, RNA, NAAT NEGATIVE (NEGATIVE) Diagnostic Findings I reviewed the AP and Lateral radiographs which showed evidence of cemented TKA.
[2021-05-11] MEDS ORDERED: SENNA 8.6 MG TAB PO SCH (21:00)
[2021-05-11] MEDS ORDERED: NON-FORMULARY MEDICATION (C,E,Zinc,Copper 11-Omega3s-Lut [Ocuvite Adult 50 Plus] 250-5-1 m PO SCH (21:00)
[2021-05-11] MEDS ORDERED: DORZOLAMIDE/TIMOLOL 22.3/6.8MG/ML 10 ML BTL OPB SCH (21:00)
[2021-05-11] MEDS ORDERED: BIMATOPROST 0.01% OP SOLN 2.5 ML BTL OP SCH (21:00)
[2021-05-11] MEDS: ASPIRIN 81 MG ECTAB PO SCH (21:15)
[2021-05-11] MEDS: ceFAZolin 2000MG 2,000 MG/15 ML SYR IV SCH (21:15)
[2021-05-11] MEDS: DOCUSATE SODIUM 100 MG CAP PO SCH (21:16)
[2021-05-11] MEDS: ACETAMINOPHEN 500 MG TAB PO SCH (21:17)
[2021-05-12] MEDS: ACETAMINOPHEN 500 MG TAB PO SCH ×2 (05:00→14:19)
[2021-05-12] MEDS: ceFAZolin 2000MG 2,000 MG/15 ML SYR IV SCH ×2 (05:00→14:19)
[2021-05-12 06:19] LABS: Hematocrit (blood only) 33.1 % (37-47); Hemoglobin 10.9 g/dL (12.0-16.0); Mean Corpuscular Hemoglobin 30.7 pg (25-34); Mean Corpuscular Hgb Conc 32.9 g/dL (32-36); Mean Corpuscular Volume 93.2 fL (80-100); Mean Platelet Volume 9.7 fL (7.4-10.4); Platelet Count 231 K/uL (130-400); RDW Coefficient of Variation 12.9 % (11.5-14.5); RDW Standard Deviation 44.4 fL (36.4-46.3); Red Blood Count 3.55 M/uL (4.2-5.4); White Blood Count 15.95 K/uL (4.8-10.8)
[2021-05-12 06:35] LABS: BUN Creatinine Ratio 22.1 (10-20); Calcium 8.6 mg/dl (8.5-10.1); Creatinine Clr Calc Pharmacy 60.8 ml/min; Est GFR (African American) 94.5 ml/min; Est GFR (Non-African American) 81.5 ml/min; Potassium 4.2 mmol/L (3.5-5.1)
[2021-05-12] MEDS ORDERED: FERROUS GLUCONATE 324 MG TAB PO SCH (08:00)
[2021-05-12] MEDS ORDERED: ASCORBIC ACID 500 MG TAB PO SCH (08:00)
[2021-05-12] MEDS ORDERED: dexAMETHasone 10 MG in SYRINGE 0 ML IV SCH (08:00)
[2021-05-12] MEDS: DOCUSATE SODIUM 100 MG CAP PO SCH (08:40)
[2021-05-12] MEDS: ASPIRIN 81 MG ECTAB PO SCH (08:44)
--- NOTE | 2021-05-12 08:50 | Orthopedic Progress Note ---
Date of Service May 12, 2021 Assessment & Plan (1) Osteoarthritis of left knee: POD #1 s/p left TKA, planned to be done as an outpatient, her blood pressure remained low with attempted standing and working with PT despite IV fluid boluses last evening and she was admitted. Regular diet. WBAT LLE with walker. OOB to chair. Continue pain control. Check labs tomorrow. DVT prophylaxis: TEDs 3 weeks, foot pumps while in hospital, ASA 81 mg BID for 6 weeks. PT/OT. Plan to change dressing POD #2 to Silverlon D/C planning. Admission and Anticipated Discharge Date Admission Date: May 11, 2021 Subjective Feeling much better, has not used any narcotics. She feels ready to go home. Physical Exam Physical Exam: LLE: Dressing clean, dry, intact. Able to actively flex and extend the knee and preform striaght leg raise. Wiggling ankles and toes. Sensation to light touch is intact. BCR < 2 sec. Results & Data ([facility]) Vital Signs (Past 12 Hours) Vital Signs Temp Pulse Resp BP Pulse Ox 05/12/21 07:05 36.8 C 69 16 100/63 92 05/12/21 03:29 36.6 C 60 16 95/61 L 92 05/11/21 23:34 36.5 C 59 L 16 95/62 L 93 Laboratory Results 05/12/21 05/12/21 05/11/21 Range/Units 05:27 05:27 16:12 WBC 15.95 H (4.8-10.8) K/uL RBC 3.55 L (4.2-5.4) M/uL Hgb 10.9 L (12.0-16.0) g/dL Hct 33.1 L (37-47) % MCV 93.2 (80-100) fL MCH 30.7 (25-34) pg MCHC 32.9 (32-36) g/dL RDW Std Deviation 44.4 (36.4-46.3) fL RDW Coeff of Jamel 12.9 (11.5-14.5) % Plt Count 231 (130-400) K/uL MPV 9.7 (7.4-10.4) fL Sodium 139 (136-145) mmol/L Potassium 4.2 (3.5-5.1) mmol/L Chloride 108 H (98-107) mmol/L Carbon Dioxide 24 (21-32) mmol/L Anion Gap 7.0 (3-11) BUN 16 (7-18) mg/dl Creatinine 0.74 (0.6-1.2) mg/dl Est Cr Clr Drug Dosing 60.8 ml/min Est GFR ( Amer) 94.5 ml/min Est GFR (Non-Af Amer) 81.5 ml/min BUN/Creatinine Ratio 22.1 H (10-20) Glucose 119 H (70-99) mg/dl Calcium 8.6 (8.5-10.1) mg/dl COVID-19 Eval Order SARS-CoV-2, RNA, NAAT NEGATIVE (NEGATIVE) 05/11/21 05/11/21 Range/Units 16:12 14:33 WBC (4.8-10.8) K/uL RBC (4.2-5.4) M/uL Hgb 12.0 (12.0-16.0) g/dL Hct 35.5 L (37-47) % MCV (80-100) fL MCH (25-34) pg MCHC (32-36) g/dL RDW Std Deviation (36.4-46.3) fL RDW Coeff of Jamel (11.5-14.5) % Plt Count (130-400) K/uL MPV (7.4-10.4) fL Sodium (136-145) mmol/L Potassium (3.5-5.1) mmol/L Chloride (98-107) mmol/L Carbon Dioxide (21-32) mmol/L Anion Gap (3-11) BUN (7-18) mg/dl Creatinine (0.6-1.2) mg/dl Est Cr Clr Drug Dosing ml/min Est GFR ( Amer) ml/min Est GFR (Non-Af Amer) ml/min BUN/Creatinine Ratio (10-20) Glucose (70-99) mg/dl Calcium (8.5-10.1) mg/dl COVID-19 [facility], RNA, NAAT (NEGATIVE)
[2021-05-12] MEDS ORDERED: MAGNESIUM OXIDE 400 MG TAB PO SCH (09:00)
[2021-05-12] MEDS ORDERED: MULTIVITAMIN TAB PO SCH (09:00)
[2021-05-12] MEDS ORDERED: FOLIC ACID 400 MCG TAB PO SCH (09:00)
--- NOTE | 2021-05-12 13:32 | Orthopedic Progress Note ---
Date of Service May 12, 2021 Assessment & Plan (1) Osteoarthritis of left knee: POD #1 s/p left TKA, doing as well as expected Regular diet. WBAT LLE with walker. OOB to chair. Continue pain control. DVT prophylaxis: TEDs 3 weeks, foot pumps while in hospital, ASA 81 mg BID for 6 weeks. PT/OT--Tolerated PT today without issue. D/C planning- DC to home today. Dr Waters aware. Scheduled or home health therapy tomorrow. Scheduled to follow-up with me in office tomorrow for wound check. Admission and Anticipated Discharge Date Admission Date: May 11, 2021 Subjective Patient in chair. Had PT. Ate lunch. Denies lightheadedness or dizziness. Ready to go home today. Pain controlled. Physical Exam Physical Exam: Left knee post-op dressings intact. R leg deepak hose donned. NV intact B LE, Palpable DP and PT pulses. 5/5 B EHL, TA, gastroc strength. B calves are soft. Results & Data ([facility]) Vital Signs (Past 12 Hours) Vital Signs Temp Pulse Resp BP Pulse Ox 05/12/21 11:00 36.8 C 66 16 100/61 92 05/12/21 07:05 36.8 C 69 16 100/63 92 05/12/21 03:29 36.6 C 60 16 95/61 L 92 Laboratory Results 05/12/21 05/12/21 05/11/21 Range/Units 05:27 05:27 16:12 WBC 15.95 H (4.8-10.8) K/uL RBC 3.55 L (4.2-5.4) M/uL Hgb 10.9 L (12.0-16.0) g/dL Hct 33.1 L (37-47) % MCV 93.2 (80-100) fL MCH 30.7 (25-34) pg MCHC 32.9 (32-36) g/dL RDW Std Deviation 44.4 (36.4-46.3) fL RDW Coeff of Jamel 12.9 (11.5-14.5) % Plt Count 231 (130-400) K/uL MPV 9.7 (7.4-10.4) fL Sodium 139 (136-145) mmol/L Potassium 4.2 (3.5-5.1) mmol/L Chloride 108 H (98-107) mmol/L Carbon Dioxide 24 (21-32) mmol/L Anion Gap 7.0 (3-11) BUN 16 (7-18) mg/dl Creatinine 0.74 (0.6-1.2) mg/dl Est Cr Clr Drug Dosing 60.8 ml/min Est GFR ( Amer) 94.5 ml/min Est GFR (Non-Af Amer) 81.5 ml/min BUN/Creatinine Ratio 22.1 H (10-20) Glucose 119 H (70-99) mg/dl Calcium 8.6 (8.5-10.1) mg/dl COVID-19 Eval Order SARS-CoV-2, RNA, NAAT NEGATIVE (NEGATIVE) 05/11/21 05/11/21 Range/Units 16:12 14:33 WBC (4.8-10.8) K/uL RBC (4.2-5.4) M/uL Hgb 12.0 (12.0-16.0) g/dL Hct 35.5 L (37-47) % MCV (80-100) fL MCH (25-34) pg MCHC (32-36) g/dL RDW Std Deviation (36.4-46.3) fL RDW Coeff of Jamel (11.5-14.5) % Plt Count (130-400) K/uL MPV (7.4-10.4) fL Sodium (136-145) mmol/L Potassium (3.5-5.1) mmol/L Chloride (98-107) mmol/L Carbon Dioxide (21-32) mmol/L Anion Gap (3-11) BUN (7-18) mg/dl Creatinine (0.6-1.2) mg/dl Est Cr Clr Drug Dosing ml/min Est GFR ( Amer) ml/min Est GFR (Non-Af Amer) ml/min BUN/Creatinine Ratio (10-20) Glucose (70-99) mg/dl Calcium (8.5-10.1) mg/dl COVID-19 Eval [facility], RNA, NAAT (NEGATIVE)
--- NOTE | 2021-05-12 15:19 | Discharge Summary ---
Date of Service May 12, 2021 Principal Diagnosis Left Knee Osteoarthritis Discharge Data Allergies Allergy/AdvReac Type Severity Reaction Status Date / Time ibuprofen Allergy Severe LARGE Verified 05/11/21 05:55 HIVES WHEN ON HIGH DOSES naproxen Allergy Severe ARM Verified 05/11/21 05:55 NUMBNESS caffeine Allergy Mild "increases Verified 05/11/21 05:55 anxiety" latex Allergy Mild ITCHY Verified 05/11/21 05:55 mold Allergy Mild ITCHING Verified 05/11/21 05:55 AND SINUS PROBLEMS Sulfa (Sulfonamide Allergy Mild RASH Verified 05/11/21 05:55 Antibiotics) fentanyl AdvReac Intermediate Nausea Verified 05/11/21 05:55 Benzodiazepines AdvReac Mild GETS Verified 05/11/21 05:55 ADDICTED choline salicylate AdvReac Mild EAR RINGING Verified 05/11/21 05:55 magnesium salicylate AdvReac Mild EAR RINGING Verified 05/11/21 05:55 Trilisate AdvReac Mild EAR RINGING Unverified 03/24/17 05:42 CHOLINE MAG TRISAL Allergy Intermediate EAR RINGING Uncoded 05/11/21 05:55 Procedures Performed Operation Date: 05/11/21 07:00 Actual Procedures p Left Total Knee Arthroplasty(Left) - Chico Waters MD Ordered Studies 05/11/21 05:00 US - OR guided needle placemen Routine Hospital Course (1) Osteoarthritis of left knee: Underwent a left total knee arthroplasty on 05-11-[address] Waters. Initially was to be an outpatient procedure but patient was hypotensive post-op and dizzy with standing. She was therefore admitted to the floor under observation. Her H and H after surgery was 12. While in hospital patient tolerated PO diet. Pain. She was able to void. Has gas but no BM yet. Refused stool softner. Pain controlled with PO meds. Had POD 1 PT and was able to walk with walker without dizziness. BP running low but WNL, and POD 1 am labs wnl. DVT prophylaxis with ASA 81mg BID, tutu hose, and foot pumps. Here post-op dressings have remained intact. Patient deemed stable and anxious to go home on POD 1 in PM. She is already set up with home health physical therapy for 05-13-21. She is WBAT with walker. She will continue ASA 81mg BID x 6wks, and tutu hose for 2-3wks. She will keep post-op dressings on, clean, and dry. I am scheduled to see her tomorrow on 05-13-21 for removal of dressings and will change to silverlon waterproof dressing. All post-op medications were previously sent to her pharmacy and patient already picked up. These include aspirin 81mg, tylenol, zofran, oxycodone, vit c, iron. I also recommended she purchase a stool softner for constipation. She will call the office or go the the ED is she has any questions or concerns. Giseljuan see Discharge Plan for detailed instrutions. Total Time Total Time Spent Total Time Spent (In Minutes): 20min Discharge Plan Discharge Items Patient Disposition: Home - Home Health Services Reason For Visit: Left Knee Osteoarthritis Discharge Diagnosis: Left Knee Osteoarthritis Activity: Per Instructions section Non-emergency contact: Primary Care Provider Call non-emergency contact if: your pain is not controlled, your temperature is above 101.5, your wound has increased redness and your wound has increased drainage Follow-up/Referrals: [facility] [Outside] (Per surgeon's H&P.) Ez Gayle DO [Primary Care Provider] - Gia Palmer P.APhu [Physician Carbonating Stone Cleaner] - 05/13/21 9:30 am Diet: Vegan (no animal product) Addtl Attending Provider Instructions: Post-operative Instructions Pain Expect to be in a fair amount of pain after surgery. Remember, our goal is not to eliminate your pain, but to make it tolerable. It is a good idea to stay ahead of your pain by taking the medications you were prescribed once you get home. Typically, the pain starts improving 3-7 days after surgery. You should start weaning off the narcotic pain medication (oxycodone) as soon as your pain improves. Please call our office if your pain is not adequately controlled. You can take tylenol 1000mg every 8hrs for mild to moderate pain. Ice Ice your operative site at least 5 times a day for 15-30 minutes at a time. Make sure you have a thin cloth between the ice or cooling unit and your skin to prevent poe bite. This is especially important if you received a nerve block. Continue icing your operative site for the first 5-7 days after surgery, then as needed. Diet/Nausea/Vomiting Start by drinking clear liquids and eating crackers. If you can tolerate this, then you may resume your normal diet. If you feel nauseated or vomit, take Zofran/ondansetron (if prescribed). Please call our office if you have intrac table nausea or vomiting, or, if after hours, you may go to the Emergency Room for help. Constipation Constipation is a common side effect of narcotic pain medication. If you have not had a bowel movement within 2 days after surgery, we recommend purchasing an over the counter laxative such as Milk of Magnesia, Dulcolax, or Miralax from a local pharmacy, and taking it as instructed. Call our clinic if any questions. Weight bearing and Range of Motion. Weightbearing as tolerated with walker. No restrictions with range of motion. Physical therapy Initially you will start with home health physical therapy. At our first visit with at our office we will provide you with script for outpatient physical therapy. Wound care and showering Do not get dressings wet. You can shower or sponge bathe but will need to cover dressings. It is normal to see some dried blood on the dressings. Do not remove the dressings. You can reinforce if needed. We will inspect your wound at your first post-operative visit, and remove your dressings. At that time we will apply a water-proof dressing that is removed 14 days after surgery. Call the office with any concerns TUTU stockings If you were given white stockings, these are to be worn at all times except to s hower and sleep (on both legs) for the first 2 weeks after surgery. We will apply the TUTU to the operative leg once we remove your post-op dressings at your follow-up appointment. Driving You may not drive while taking narcotic pain medication. We will discuss return to driving at your first follow-up appointment. Return To Work Your return to work depends on what surgery was done and what type of work you do. Please bring any paperwork your employer needs completed to your first post-operative visit. Also, bring a description of your job duties, as this helps us to understand what risks you may face at work. Travel Avoid long distance travel (greater than 1 hour) in airplanes and cars for the first 6 weeks after surgery if possible. If you must travel, please let us know so we can discuss additional measures to prevent blood clots. Follow-up You should have a follow-up appointment already scheduled for 05-13 at 9:30am. When to call the office [phone] It is normal to have swelling and bruising in the limb that was operated on. This will improve with time. It is also normal to have fevers for the first 2 days after surgery. Reasons you should call your doctor include: Uncontrolled pain; Nausea, vomiting, or constipation that does not improve with medication; Fevers over 101.5, chills, sweats; Drainage or bleeding from the wound; Foul odor; Spreading areas of redness; Any other concerns. NEW MEDICATIONS: new medications will be sent to your pharmacy: oxycodone, iron, vit c, tylenol, aspirin, zofran Pending Studies at Discharge: No Stand-Alone Forms: [facility], Smoking Cessation Medications and DC Order Prescriptions: Continued citalopram 20 mg Tablet 20 mg PO BID RF: 0 dorzolamide-timolol 22.3-6.8 mg/mL Drops 1 drp OPB BID RF: 0 magnesium 250 mg Tablet 1 tab PO QAM RF: 0 folic acid 800 mcg Tablet 0.8 mg PO QAM RF: 0 cholecalciferol (vitamin D3) [Vitamin D3] 2,000 unit Capsule 4,000 unit PO QAM RF: 0 Lumigan 0.01 % Drops 1 drp OPB HS RF: 0 Kimberly Mint 2 cap PO QPM RF: 0 Ocuvite Adult 50 Plus 250-5-1 mg Capsule 1 cap PO QPM RF: 0 hydroxyzine pamoate [Vistaril] 25 mg Capsule 25 - 50 mg PO DAILY PRN (Reason: Anxiety) RF: 0 Zinc 22 MG See Rx Instructions .ROUTE .COMPLEX RF: 0 Discontinued aspirin [Aspir-Low] 81 mg Tablet,Delayed Release (Dr/Ec) 81 mg PO QAM RF: 0 glucosamine-chondroitin [Cosamin DS] 500-400 mg Tablet 2 tab PO QPM RF: 0 ibuprofen [Advil Liqui-Gel] 200 mg Capsule 200 mg PO QAM RF: 0 Discharge Orders: Discharge Order (Routine); Ordered 05/12/21 Ordered By: Gia Gramajo/Other Patient Handouts: DVT Post Op Prevention Admission Data Admit Date/Time: 05/11/21 17:24 Attending Provider: Chico Waters Admit Provider: Chico Waters Primary Care Provider: Ez Gayle Other Providers: [facility]Home [facility] Other Interventions: Discharge Summary Assessment (RN) Last Done: 05/12/21 14:47
== END 2021-05-12 16:00 | disposition home health service (06) ==
LOC: ASU 05:19 → 3E 05:19